=== PATIENT | male | born 1960 | race African-American/Black ===

== ENCOUNTER 2018-05-25 17:19 | Emergency (ER) | payer OTHER ==
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
[2018-05-25 18:48] VITALS: BP 155/95
== END 2018-05-25 18:58 | disposition home or self-care (01) ==
LOC: ER 17:19
DX: S16.1XXA Strain of muscle, fascia and tendon at neck level, initial encounter (principal); M54.9 Dorsalgia, unspecified; M43.6 Torticollis; V89.2XXA Person injured in unspecified motor-vehicle accident, traffic, initial encounter; I10 Essential (primary) hypertension
CPT/HCPCS: 72050; 99283

== ENCOUNTER 2018-05-31 22:18 | Emergency (ER) | payer OTHER ==
[2018-06-01] MEDS ORDERED: ACETAMINOPHEN 325 MG TABLET PO ONE (00:07)
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
[2018-06-01] MEDS ORDERED: HYDROCODONE/ACETAMINOPHEN 5-325 MG (6 TAB/ER DISP) PO PRN (01:13)
[2018-06-01] MEDS ORDERED: LIDOCAINE 5% (700 MG) TRANSDERMAL ADH..PATCH TP ONE (01:14)
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
[2018-06-01 02:05] VITALS: BP 154/75
== END 2018-06-01 01:59 | disposition home or self-care (01) ==
LOC: ER 22:18
DX: S16.1XXA Strain of muscle, fascia and tendon at neck level, initial encounter (principal); M54.5 Low back pain; M54.2 Cervicalgia; V87.7XXA Person injured in collision between other specified motor vehicles (traffic), initial encounter; Z87.891 Personal history of nicotine dependence; I10 Essential (primary) hypertension
CPT/HCPCS: 72110; 72125; 99284